=== PATIENT | female | born 1970 | race Caucasian/White ===

== ENCOUNTER → 2024-08-02 15:45 | Outpatient (CLI) | payer OTHER, MEDICAID, SELFPAY ==
[2024-08-02 17:32] LABS: Add Manual Diff / Slide Review NO; Basophils Absolute Auto 0 /uL (0-100); Basophils Percent Auto 0.4 % (0-2); Eosinophils Absolute Auto 0 /uL (0-450); Eosinophils Percent Auto 0.2 % (2-4); Hematocrit 45.3 % (36-46); Hemoglobin 15.7 g/dL (12.0-16.0); Lymphocytes Absolute Auto 1100 /uL (1100-4500); Lymphocytes Percent Auto 16.4 % (25-40); Mean Corpuscular HGB Conc 34.7 % (30-36); Mean Corpuscular Hemoglobin 35.7 PG (26-34); Mean Corpuscular Volume 102.8 fL (80-100); Monocytes Absolute Auto 600 /uL (0-900); Monocytes Percent Auto 9.4 % (3-14); Neutrophils Absolute Auto 4900 /uL (1500-7000); Neutrophils Percent Auto 73.6 % (50-75); Platelet Count 173 X10^3/uL (150-400); Red Cell Distribution Width 13.3 % (11.6-14.8); White Blood Cell Count 6.7 X10^3/uL (4.5-11.0)
[2024-08-02 17:54] LABS: Hemoglobin A1C% w Est Avg Glu 10.7 % (4.0-6.0)
[2024-08-02 18:09] LABS: HEMOLYSIS < 15 (0-50)
[2024-08-02 18:16] LABS: Alanine Aminotransferase 39 IU/L (<35); Albumin 4.6 g/dL (3.5-5.0); Albumin Globulin Ratio 1.3 (1.0-2.8); Alkaline Phosphatase 84 U/L (38-126); Aspartate Aminotransferase 50 IU/L (14-36); BUN Creatinine Ratio 22.9 (6-22); Bilirubin Total 2.2 mg/dL (0.2-1.3); Blood Urea Nitrogen 11 mg/dL (7-17); Calcium 9.6 mg/dL (8.4-10.2); Carbon Dioxide 28 mmol/L (22-32); Chloride 80 mmol/L (98-107); Cholesterol 226 mg/dL (140-199); Estimated Glomerular Filt Rate > 60 mL/min (>60); Globulin 3.6 g/dL (1.7-4.1); Glucose 413 mg/dL (70-100); Potassium 4.5 mmol/L (3.4-5.1); Sodium 122 mmol/L (137-145); Total Protein 8.2 g/dL (6.3-8.2); Triglycerides 149 mg/dL (35-150)
[2024-08-02 18:23] LABS: HDL Cholesterol 110 mg/dL (40-60); LDL Cholesterol Calculated 86 mg/dL (<100)
[2024-08-02 19:13] LABS: Vitamin B12 334 pg/mL (239-931)
== END ==
LOC: LAB 15:49
PROVIDERS: PCP Registered Nurse; Referring Provider Registered Nurse; Visit Provider Registered Nurse
DX: E11.69 Type 2 diabetes mellitus with other specified complication (principal); E78.5 Hyperlipidemia, unspecified; Z12.11 Encounter for screening for malignant neoplasm of colon
CPT/HCPCS: 36415; 80053; 80061; 82607; 83036; 85025